=== PATIENT | female | born 1960 | race African-American/Black ===

== ENCOUNTER 2022-04-29 07:50 | Outpatient (CLI) | payer BC ==
[2022-04-29 10:50] LABS: #Eosinphils 0.3 10x3/uL (0.0-0.5); #Monocytes 0.4 10x3/uL (0.0-1.1); #Neutrophils 1.4 10x3/uL (1.5-8.4); %Basophils 0.9 % (0.0-2.0); %Eosinophils 7.5 % (0.0-6.0); %Lymphocytes 49.5 % (18.0-47.0); %Monocytes 8.6 % (0.0-10.0); %Neutrophils 33.3 % (40.0-75.0); Mean Corpuscular HGB CONC 32.3 g/dL (32.0-36.0); Mean Corpuscular Hemoglobin 26.8 pg (27.0-33.0); Mean Corpuscular Volume 82.9 fl (81.6-98.3); Mean Platelet Volume 11.4 fl (7.4-10.4); Platelet Count 252 10x3/uL (150-450); RBC Distribution Width 15.4 % (11.5-14.5); Red Blood Cell (RBC) Count 4.85 10x6/uL (3.90-5.03); White Blood Cell (WBC) Count 4.3 10x3/uL (3.5-10.5)
[2022-04-29 11:08] LABS: Anion Gap 12 mmol/L (10-20); BUN (Urea Nitrogen) 12 mg/dL (9.8-20.1); Calc. Creatinine Clearance 0 mL/min (70-130); Carbon Dioxide 27 mmol/L (23-31); Chloride 109 mmol/L (98-107); Estimated GFR 79; Glucose 104 mg/dL (80-115); Sodium 144 mmol/L (136-145)
[2022-04-29 11:09] LABS: INR-International Normal Ratio 0.9; Prothrombin Time 10.3 sec (9.5-12.1)
== END 2022-04-29 07:51 | disposition home or self-care (01) ==
LOC: LABBT 07:50
PROVIDERS: ATTEND Orthopaedic Surgery
DX: Z01.812 Encounter for preprocedural laboratory examination (principal); M16.12 Unilateral primary osteoarthritis, left hip; Z20.822 Contact with and (suspected) exposure to COVID-19
CPT/HCPCS: 80048; 85025; 85610; 87081; 87811; 93005; 93010

== ENCOUNTER 2022-05-04 05:31 | Observation (INO) | payer BC ==
[2022-04-30 13:12] VITALS: BMI 33.5
[2022-05-04] MEDS ORDERED: Sodium Chloride 0.9% 100 ML ONE ×2 (06:04→07:00)
[2022-05-04] MEDS ORDERED: Vancomycin (BATCH) 1.5 GRAM/300 ML BAG ONE (06:04)
[2022-05-04] MEDS ORDERED: Tranexamic Acid 1,000 MG/10 ML VIAL ONE (06:04)
[2022-05-04] MEDS ORDERED: Propofol 500 MG/50 ML VIAL ONE (06:18)
[2022-05-04] MEDS ORDERED: fentaNYL Citrate/PF 100 MCG/2 ML SYRINGE ONE (06:18)
[2022-05-04] MEDS ORDERED: Fentanyl 100 MCG/2 ML VIAL ONE ×2 (06:31→08:58)
[2022-05-04] MEDS ORDERED: Midazolam HCl 2 mg/2 ml Vial ONE (06:31)
[2022-05-04] MEDS ORDERED: Lidocaine 1% MPF 2 ML VIAL ONE (06:31)
[2022-05-04] MEDS ORDERED: CEFAZOLIN 2 GM VIAL ONE (07:00)
[2022-05-04] MEDS ORDERED: diphenhydrAMINE 25 MG CAP PO PRN (07:00)
[2022-05-04] MEDS ORDERED: Zolpidem Tartrate 5 MG TAB PO PRN (07:00)
[2022-05-04] MEDS ORDERED: Bupivacaine PF 0.5% 30 ML VIAL ONE (07:00)
[2022-05-04] MEDS ORDERED: Fentanyl 100 MCG/2 ML VIAL SLOW IVP PRN ×2 (07:00)
[2022-05-04] MEDS ORDERED: Acetaminophen 325 MG TAB PO PRN (07:00)
[2022-05-04] MEDS ORDERED: Promethazine HCl 25 MG/ML VIAL IM PRN ×2 (07:00→07:58)
[2022-05-04] MEDS ORDERED: Ondansetron PF 4 MG/2 ML Vial IVP PRN (07:00)
[2022-05-04] MEDS ORDERED: HYDROcodone/Acetaminophen 10/325 mg Tablet PO PRN (07:00)
[2022-05-04] MEDS ORDERED: Bupivacaine HCl 0.5%/Epinephrine 1:200,000/PF 30 ml Vial ONE (07:08)
[2022-05-04] MEDS ORDERED: Dexamethasone 20 MG/5 ML VIAL ONE (07:08)
[2022-05-04] MEDS ORDERED: PROPOFOL 200 MG/20 ML VIAL ONE (07:08)
[2022-05-04] MEDS ORDERED: Ondansetron PF 4 MG/2 ML Vial ONE (07:08)
[2022-05-04] MEDS ORDERED: Phenylephrine 10 MG/ML VIAL ONE (07:08)
[2022-05-04] MEDS ORDERED: Promethazine HCl 25 MG/ML VIAL IVPB PRN (07:58)
[2022-05-04] MEDS ORDERED: Ondansetron HCl/PF 4 MG/2 ML Vial IVP PRN (07:58)
[2022-05-04] MEDS: Sodium Chloride 0.9% 1,000 ML IV SCH ×2 (10:41→18:33)
[2022-05-04] MEDS: Aspirin 81 mg Enteric Coated Tablet PO SCH ×2 (10:41→21:30)
[2022-05-04] MEDS: Rosuvastatin 10 MG TAB PO SCH (11:05)
[2022-05-04] MEDS: Amlodipine 10 MG TAB PO SCH (11:05)
[2022-05-04] MEDS: Losartan 25 MG TAB PO SCH (11:05)
[2022-05-04] MEDS: HYDROcodone/Acetaminophen 10/325 mg Tablet PO PRN ×2 (11:06→15:11)
[2022-05-04] MEDS: CEFAZOLIN 2 GM in Sodium Chloride 0.9% 100 ML IVPB SCH ×2 (14:11→23:17)
[2022-05-04] MEDS: Ketorolac Tromethamine 30 MG/ML VIAL IVP SCH ×2 (14:11→21:30)
[2022-05-05] MEDS: Sodium Chloride 0.9% 1,000 ML IV SCH (03:42)
[2022-05-05] MEDS: Ketorolac Tromethamine 30 MG/ML VIAL IVP SCH (05:59)
[2022-05-05] MEDS ORDERED: Levothyroxine Sodium 50 MCG TAB PO SCH (06:00)
[2022-05-05 07:43] VITALS: BP 123/78; TEMP 97.8
[2022-05-05 07:59] LABS: Hemoglobin 11.8 g/dL (12.0-16.0); Mean Corpuscular HGB CONC 31.8 g/dL (32.0-36.0); Mean Corpuscular Hemoglobin 27.4 pg (27.0-31.0); Mean Corpuscular Volume 86.3 fL (78.0-98.0); Mean Platelet Volume 8.7 fL (7.4-10.4); Platelet Count 202 thou/uL (130-400); RBC Distribution Width 13.5 % (11.5-14.5); White Blood Cell (WBC) Count 8.1 thou/uL (4.8-10.8)
[2022-05-05] MEDS: Losartan 25 MG TAB PO SCH (08:00)
[2022-05-05] MEDS ORDERED: Ferrous Gluconate 324 MG TAB PO SCH (08:00)
[2022-05-05] MEDS: Amlodipine 10 MG TAB PO SCH (08:00)
[2022-05-05] MEDS: Rosuvastatin 10 MG TAB PO SCH (08:00)
[2022-05-05] MEDS: HYDROcodone/Acetaminophen 10/325 mg Tablet PO PRN (08:01)
[2022-05-05] MEDS: Aspirin 81 mg Enteric Coated Tablet PO SCH (08:02)
[2022-05-05] MEDS ORDERED: Multivitamin W/ Minerals 1 TAB PO SCH (09:00)
[2022-05-05] MEDS ORDERED: Senokot S 8.6-50 MG TAB PO SCH (09:00)
== END 2022-05-05 11:10 | disposition home or self-care (01) ==
LOC: SDC 05:31 → SJJU 10:05
PROVIDERS: ADMIT Orthopaedic Surgery; ATTEND Orthopaedic Surgery
PROC: 0SRB02A Replacement of Left Hip Joint with Metal on Polyethylene Synthetic Substitute, Uncemented, Open Approach (ICD-10-PCS; principal; 2022-05-04)
DX: M16.12 Unilateral primary osteoarthritis, left hip (principal); I10 Essential (primary) hypertension; M19.90 Unspecified osteoarthritis, unspecified site; K21.9 Gastro-esophageal reflux disease without esophagitis; E89.0 Postprocedural hypothyroidism; Z79.82 Long term (current) use of aspirin; Z79.890 Hormone replacement therapy; Z79.899 Other long term (current) drug therapy; Z88.2 Allergy status to sulfonamides
CPT/HCPCS: 36415; 85027; C1776; J0690; J1100; J1885; J2250; J2370; J2405; J2704; J3010; J3370; J3490; S0020